=== PATIENT | male | born 1955 | race Caucasian/White ===

== ENCOUNTER 2022-12-15 09:45 | Emergency (ER) | payer MEDICARE, OTHER, SELFPAY ==
--- NOTE | ~2022-12-15 | XR_ITS ---
EXAMINATION: XR chest 2V DATE: 12/15/2022 10:25 INDICATION: Left anterior chest pain. TECHNIQUE: Frontal and lateral views of the chest were obtained. COMPARISON: Chest 2 views 03/30/2018 FINDINGS: The chest demonstrates clear lungs without pneumonia, pleural effusion, or pneumothorax. Th e heart size is normal. Median sternotomy wires and mediastinal surgical clips are seen, likely from prior coronary artery bypass grafting. IMPRESSION: 1. No acute cardiopulmonary disease. Reviewed, dictated and finalized at location A.
[2022-12-15 09:55] VITALS: BP 172/101; PULSE 74; RESP 18; TEMP 36.6; O2SAT 97
--- NOTE | 2022-12-15 10:08 | ED.GENADULT ---
HPI - General Adult General Chief complaint: Unspecified Stated complaint: Left Side Pain Source: patient Mode of arrival: ambulatory Limitations: no limitations History of Present Illness HPI narrative: 67-year-old male with hx DM, HTN, presented for complaint of left lower rib and epigastric pain for about 4 days. States it feels like the pain is 'under the lung' and radiates to the epigastric area. States this started the day after using a rowing machine for the 1st time. Denies falls or injury. He denies associated chest pain, palpitations, shortness of breath, Dizziness, nausea, vomiting, diarrhea. Endorses a history of constipation. LBM 2 days ago. States it was quite awhile for the last bowel movement prior to this. Patient has not taken bp meds today. Related Data Home Medications Medication Instructions Recorded Confirmed albuterol sulfate 90 mcg/actuation inhalation 12/15/22 aerosol inhaler armodafinil 150 mg tablet mg PO 12/15/22 budesonide 160 mcg-glycopyr 9 inh inhalation 12/15/22 mcg-formot 4.8 mcg/actuation HFA inhaler (Breztri Aerosphere) escitalopram oxalate 20 mg tablet mg 12/15/22 felodipine 10 mg tablet,extended mg PO 12/15/22 release 24 hr finasteride 5 mg tablet mg 12/15/22 gabapentin 600 mg tablet mg 12/15/22 hydrocodone 5 mg-acetaminophen 325 tablet 12/15/22 mg tablet isosorbide 20 mg-hydralazine 37.5 tablet 12/15/22 mg tablet lisdexamfetamine 30 mg capsule mg 12/15/22 (Vyvanse) lisinopril 40 mg tablet mg 12/15/22 metformin 500 mg tablet mg 12/15/22 metoprolol tartrate 25 mg tablet mg 12/15/22 olanzapine 15 mg tablet mg 12/15/22 ropinirole 2 mg tablet mg 12/15/22 simvastatin 40 mg tablet mg 12/15/22 tamsulosin 0.4 mg capsule mg PO 12/15/22 trihexyphenidyl 2 mg tablet mg 12/15/22 zolpidem 10 mg tablet mg 12/15/22 Allergies Allergy/AdvReac Type Severity Reaction Status Date / Time No Known Allergies Allergy Unverified 09/23/15 10:29 Review of Systems Review of Systems: CONSTITUTIONAL: Denies body aches, fever, chills, or sweats. EYES: Denies visual changes, redness, or discharge. ENT: Denies rhinorrhea, congestion, sore throat, or otalgia. CARDIOVASCULAR: Denies chest pain, palpitations, or edema. RESPIRATORY: Denies cough or dyspnea. GASTROINTESTINAL: Denies abdominal pain, nausea, vomiting, or diarrhea. GENITOURINARY: Denies dysuria or hematuria. SKIN: Denies rash, itching, or wounds. MUSCULOSKELETAL: Denies back pain, joint pain, or myalgia. NEUROLOGIC: Denies headache, numbness, tingling, or weakness. All systems reviewed & are unremarkable except as noted in HPI and below PMFSH Past Medical History Medical History Chronic back pain Diabetes Hypertension Schizophrenia Surgical History Surgical History Hx of CABG Comments At time of signature, I have reviewed and agree with nursing past medical, surgical, social and family history unless otherwise noted. Please see nursing chart for further information. There is no relevant family history pertinent to the presenting complaint Exam Narrative: GENERAL: Well-appearing, well-nourished, and in no acute distress. HEAD: Normocephalic, atraumatic. EYES: EOMI. No redness or drainage. Conjunctivae normal. ENT: Mucous membranes pink and moist. No rhinorrhea. CHEST: No respiratory distress. Clear to auscultation. HEART: Regular rate and rhythm. No murmur appreciated. Normal peripheral pulses. ABDOMEN: Soft, large/round, Mild tender epigastric area; normal active bowel sounds. MUSCULOSKELETAL: No bony tenderness. Left Ribs nontender with palpation. SKIN: Warm, dry, no bruising, rash or wounds. Capillary refill normal. Normal skin turgor. NEURO: No focal deficits. Alert and oriented x3. Gait steady. PSYCH: Normal affect. Course Course Emergency Course: Melissa
== END 2022-12-15 11:30 | disposition home or self-care (01) ==
PROVIDERS: Emergency Provider Nurse Practitioner Family
DX: R10.12 Left upper quadrant pain (principal); E11.9 Type 2 diabetes mellitus without complications; I10 Essential (primary) hypertension; Z79.84 Long term (current) use of oral hypoglycemic drugs; Z79.891 Long term (current) use of opiate analgesic; Z95.1 Presence of aortocoronary bypass graft
CPT/HCPCS: 71046; 99213; G0463